=== PATIENT | female | born 1965 | race African-American/Black ===

== ENCOUNTER → 2020-07-22 | Outpatient (CLI) | payer OTHER ==
--- NOTE | 2020-07-22 15:03 | RADIOLOGY REPORT (SQ) ---
EXAM DESCRIPTION: BARIUM SWALLOW ESOPHAGUS IMAGES COMPLETED DATE/TIME: 07/22/2020 8:37 am REASON FOR STUDY: DYSPHAGIA, UNSPECIFIED R13.10 DYSPHAGIA, UNSPECIFIED COMPARISON: None. TECHNIQUE: Under fluoroscopic guidance, patient ingested effervescent granules followed by thick and thin barium. Fluoroscopic spot images and routine radiographic images acquired and stored on PACS. 12 MM BARIUM TABLET GIVEN: Yes. Slight delay the GE junction LIMITATIONS: None. FLUOROSCOPY TIME: FLUORO TIME: 1.7 minutes of fluoroscopy was used 11 images saved to PACS. FINDINGS: NEUROMUSCULAR COORDINATION OF SWALLOW: Normal. Mild cricopharyngeal hypertrophy causing n arrowing of the proximal esophagus. No penetration or aspiration seen. ESOPHAGEAL MOTILITY: Slow primary peristalsis with stasis of contrast within the esophagus. Tertiary contractions seen in the distal half of the esophagus. No esophageal spasm seen. ESOPHAGEAL MUCOSA: Normal mucosa without masses or ulceration. GASTRO-ESOPHAGEAL JUNCTION: No hiatal hernia. Mild narrowing of the GE junction did delayed passage 12 mm barium tablet for approximately 1 minute but eventually cleared with additional swallows of bar ium. Mild gastroesophageal reflux. NON-GI TRACT STRUCTURES: No significant finding. OTHER: No other significant finding. IMPRESSION: 1. 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 2. MILD NARROWING OF THE GE JUNCTION CAUSES SLIGHT DELAY IN PASSAGE OF 12 MM BARIUM TABLET. MILD GA STROESOPHAGEAL IN REFLUX SEEN. COMMENT: Quality ID [id number]: Final reports for procedures using fluoroscopy that document radiation exp osure indices, or exposure time and number of fluorographic images (if radiation exposure indices are not available) TECHNICAL DOCUMENTATION: JOB ID: [id number] 2010 [email or web address]- All Rights Reserved Reading location - IP/workstation name: [email or web address] [id number]
== END ==
LOC: RAD 07:45
PROVIDERS: ATTEND Internal Medicine Gastroenterology
DX: R13.10 Dysphagia, unspecified (principal); K21.9 Gastro-esophageal reflux disease without esophagitis
CPT/HCPCS: 74220